=== PATIENT | male | born 1980 | race Two or more races ===

== ENCOUNTER 2017-07-27 12:13 | Emergency (ER) | payer BC ==
[2017-07-27 12:17] VITALS: BMI 30.1
[2017-07-27] MEDS ORDERED: IBUPROFEN 600 MG TABLET (FP) PO ONE ×2 (13:08→13:12)
--- NOTE | 2017-07-27 13:08 | PDOC ---
History of Present Illness - General Chief Complaint: Sore Throat Stated Complaint: THROAT PAIN Time Seen by Provider: 07/27/17 13:01 - History of Present Illness Initial Comments: 07/27/17 13:06 CHIEF COMPLAINT: throat pain HISTORY OF PRESENT ILLNESS: 36 yo M with hx of hyperthyroidism and non insulin dependent DM presents to fast track with throat pain. Patient states he is supposed to get radiation therapy this next week for his hyperthyroidism "but I started feeling discomfort in my throat; it feels full and swollen, and it hurts to swallow now." He reports "sweating a lot" last night but is unsure if he had a fever. He denies vomiting, diarrhea. PAST MEDICAL HISTORY: as per HPI FAMILY HISTORY: Denies SOCIAL HISTORY: Denies tobacco, alcohol, illicit drug use. SURGICAL HISTORY: Denies ALLERGIES: N REVIEW OF SYSTEMS General/Constitutional: "Chills, sweating a lot." HEENT: Full, swollen, painful throat. Denies change in vision. Denies ear pain or discharge. Cardiovascular: Denies chest pain or shortness of breath. Respiratory: Denies cough, wheezing, or hemoptysis. Gastrointestinal: Denies nausea, vomiting, diarrhea or constipation. Denies rectal bleeding. Genitourinary: Denies dysuria, frequency, or change in urination. Musculoskeletal: Denies joint or muscle swelling or pain. Denies neck or back pain. Skin and breasts: Denies rash or easy bruising. Neurologic: Denies headache, vertigo, loss of consciousness, or loss of sensation. PHYSICAL EXAM General Appearance: Well-appearing, appropriately dressed. No apparent distress. HEENT: Post nasal drip appreciated. No tonsillar exudate, swelling. EOMI, PERRLA. No conjunctival pallor. No photophobia, scleral icterus. Neck: L sided thyromegaly. Supple. Trachea midline. No tenderness, rigidity, carotid bruit, stridor, lymphadenopathy. Respiratory/Chest: Lungs CTAB. No shortness of breath, chest tenderness, respiratory distress, accessory muscle use. No crackles, rales, rhonchi, stridor , wheezing, dullness Cardiovascular: Tachycardia to 112. RRR. S1, S2. No JVD, murmur. Musculoskeletal/Extremities: Normal inspection. FROM of all extremities, normal capillary refill. Pelvis Stable. No CVA tenderness. No tenderness to extremities, pedal edema, swelling, erythema or deformity. Integumentary: Appropriate color, dry, warm. No cyanosis, erythema, jaundice or rash Neurologic: automobile accessories installer II-XII intact. Fully oriented, alert. Appropriate mood/affect. Motor strength 5/5. No appreciable EOM palsy, facial droop or sensory deficit. Past History - Past Medical History Allergies/Adverse Reactions: Allergies Allergy/AdvReac Type Severity Reaction Status Date / Time Penicillins Allergy Verified 07/27/17 12:16 Home Medications: Ambulatory Orders NK [No Known Home Medication] 07/27/17 Diabetes: Yes Thyroid Disease: Yes (Hyper active) - Suicide/Smoking/Psychosocial Hx Smoking History: Never smoked Information on smoking cessation initiated: No Hx Alcohol Use: No Drug/Substance Use Hx: No Substance Use Type: None *Physical Exam - Vital Signs Last Vital Signs Temp Pulse Resp BP Pulse Ox 99.5 F 112 H 19 134/84 99 07/27/17 12:14 07/27/17 12:14 07/27/17 12:14 07/27/17 12:14 07/27/17 12:14 ED Treatment Course - LABORATORY CBC & Chemistry Diagram: 07/27/17 14:22 07/27/17 14:22 Medical Decision Making - Medical Decision Making 07/27/17 13:28 36 yo M with hx of hyperthyroidism and non insulin dependent DM presents to fast track with throat pain. VS remarkable for temp 99.5 and HR 112. Discussed case with attending MD Harris, concern for thyroid crisis vs viral syndrome. Will transfer to main ED for further workup. Notified pharmacist in charge owner Sam.
--- NOTE | 2017-07-27 14:04 | PDOC ---
*Physical Exam - Vital Signs Last Vital Signs Temp Pulse Resp BP Pulse Ox 99.5 F 112 H 19 134/84 99 07/27/17 12:14 07/27/17 12:14 07/27/17 12:14 07/27/17 12:14 07/27/17 12:14 - Physical Exam Comments: 07/27/17 14:09 Patient sitting in bed, comfortable, no apparent distress, nontoxic appearance HEENT: positive: EOMI, LORRAINE, Muffled/Hoarse voice. negative: Pharyngeal Erythema, Tonsillar Exudate, Tonsillar Erythema, Nasal Congestion, Rhinorrhea Neck: positive: Trachea midline, Supple, Thyromegaly (left sided). negative: Tender, Lymphadenopathy (R), Lymphadenopathy (L) Respiratory/Chest: positive: Lungs Clear, Normal Breath Sounds. negative: Respiratory Distress, Rales, Rhonchi, Wheezing Cardiovascular: positive: Regular Rhythm, Regular Rate, Tachycardia. negative: Murmur Gastrointestinal/Abdominal: positive: Soft. negative: Tender Musculoskeletal: positive: Normal Inspection Extremity: positive: Normal Range of Motion. negative: Pedal Edema, Swelling Integumentary: positive: Warm. negative: Diaphoresis Neurologic: positive: Fully Oriented, Alert ED Treatment Course - LABORATORY CBC & Chemistry Diagram: 07/27/17 14:22 07/27/17 14:22 - Medications Given in the ED: ED Medications Discontinued Medications Generic Name Dose Route Start Last Admin Trade Name Freq PRN Reason Stop Dose Admin Ibuprofen 600 mg 07/27/17 13:08 07/27/17 13:14 Motrin - PO 07/27/17 13:09 600 mg ONCE ONE Administration Medical Decision Making - Medical Decision Making 07/27/17 14:12 Pt is a 36 yo male w/PMHx of DM and hyperthyroidism who presents with a 3 day history of throat pain that worsened today. Patient states his voice feels hoarse. He admits to subjective fevers yesterday. He states he has had unintentional weight loss recently. According to the patient, he has been taking Methimazole for the past 5 years but was advised by his environmental consultant to stop taking the medication approximately a month ago as he was concerned for poisoning. He subsequently had a RIU scan, which showed hot nodule. He is currently scheduled to undergo radioablation later this week. Patient denies any cough or cold symptoms, myalgias, chest pain, shortness of breath, palpitations, difficulty swallowing, headaches, vision changes or tremors. He does not report any abdominal pain, nausea, vomiting, urinary symptoms or bowel changes. Labs ordered EKG obtained CT neck soft tissue ordered to evaluate for any possible respiratory compromise Patient given Motrin, reports improvement of his pain 07/27/17 14:19 *DC/Admit/Observation/Transfer Diagnosis at time of Disposition: Acute streptococcal pharyngitis Leukocytosis (leucocytosis) Qualifiers: Leukocytosis type: unspecified Qualified Code(s): D72.829 - Elevated white blood cell count, unspecified; D72.829 - Elevated white blood cell count, unspecified - Discharge Dispostion Disposition: HOME Condition at time of disposition: Good Admit: No - Patient Instructions Printed Discharge Instructions: DI for Strep Throat Additional Instructions: Francis- Let the people who are going to work on your thyroid know you have strep throat and that you are taking antibiotics. They may want to postpone the procedure. Return to us if worse or any problems. Ck- Dr. Ottoniel Harris
[2017-07-27 14:32] LABS: BASOPHIL 1.3 % (0-2.0); EOSINOPHIL 0.3 % (0-4.5); MCH 24.1 pg (25.7-33.7); MCHC 31.8 g/dl (32.0-35.9); MEAN PLT VOLUME 7.7 fl (7.5-11.1); NEUTROPHILS 69.6 % (42.8-82.8); PLATELET COUNT 385 K/MM3 (134-434); RDW 12.3 % (11.9-15.9); WHITE BLOOD COUNT 16.5 K/mm3 (4.0-10.0)
[2017-07-27 14:43] LABS: ALBUMIN 3.3 g/dl (3.4-5.0); ANION GAP 9 (8-16); CALCIUM 9.6 mg/dL (8.5-10.1); CO2 25 mmol/L (21-32); CREATININE 0.7 mg/dL (0.7-1.3); GLUCOSE,RANDOM 106 mg/dL (74-106); SGOT/AST 16 U/L (15-37); SGPT/ALT 35 U/L (12-78)
[2017-07-27 14:44] LABS: BILIRUBIN,TOTAL 0.4 mg/dL (0.2-1.0); TOT PROT 7.7 g/dl (6.4-8.2)
[2017-07-27 14:53] LABS: ALK PHOS 108 U/L (45-117); THYROID STIMULATING HORMONE < 0.01 uIU/ml (0.358-3.74)
[2017-07-27] MEDS ORDERED: AZITHROMYCIN 250 MG TABLET PO ONE (15:10)
--- NOTE | 2017-07-27 15:15 | EKG ---
Test Reason : Blood Pressure : / mmHG Vent. Rate : 104 BPM Atrial Rate : 104 BPM P-R Int : 144 ms QRS Dur : 070 ms QT Int : 330 ms P-R-T Axes : 045 018 001 degrees QTc Int : 433 ms SINUS TACHYCARDIA NONSPECIFIC T WAVE ABNORMALITY ABNORMAL ECG NO PREVIOUS ECGS AVAILABLE CLINICAL CORRELATION IS RECOMMENDED REPEAT INDICATED Confirmed by TRISTEN MURPHY MD ([id number] on 07/27/2017 3:14:59 PM Referred By: Confirmed By:TRISTEN MURPHY MD
[2017-07-27] MEDS ORDERED: AZITHROMYCIN 250 MG TABLET ONE (15:21)
[2017-07-27 15:25] VITALS: BP 123/79; PULSE 109
[2017-07-27 15:38] VITALS: TEMP 98.2
[2017-07-29 08:12] LABS: THYROID PEROXIDASE(TPO) 134 IU/mL (0-34)
== END 2017-07-27 15:39 | disposition home or self-care (01) ==
LOC: JER 12:13 → JERFT 12:13 → JER 15:39
DX: J02.0 Streptococcal pharyngitis (principal); D72.829 Elevated white blood cell count, unspecified; E11.9 Type 2 diabetes mellitus without complications; E05.90 Thyrotoxicosis, unspecified without thyrotoxic crisis or storm; Z88.0 Allergy status to penicillin
CPT/HCPCS: 36415; 80053; 84443; 85025; 86376; 86800; 87070; 87077; 87430; 93005; 93010; 99283-25